=== PATIENT | male | born 1990 | race Caucasian/White ===

== ENCOUNTER 2016-09-02 14:13 | Emergency (ER) | payer BC, MEDICAID ==
[2016-09-02 14:49] LABS: % IMMATURE GRANULYOCYTES 0.2 % (0.0-1.1); ABSOLUTE IMMATURE GRANULOCYTES 0.01 10^3/uL (0.00-0.10); ADD DIFF? NO; ADD MORPH? NO; ADD SCAN? NO; ATYPICAL LYMPHOCYTE FLAG 0 (0-99); FRAGMENT RBC FLAG 0 (0-99); HEMATOCRIT 41.6 % (40.0-51.0); HEMOGLOBIN 14.5 g/dL (13.7-17.5); LEFT SHIFT FLG 0 (0-99); LIPEMIA HEMOLYSIS FLAG 90 (0-99); MEAN CELL HEMOGLOBIN 32.1 pg (27.9-34.1); MEAN CELL HEMOGLOBIN CONCENTR. 34.9 g/dL (32.4-36.7); MEAN PLATELET VOLUME 10.5 fL (8.7-11.7); PLATELET CLUMPS FLAG 0 (0-99); PLATELET COUNT 205 10^3/uL (150-400); RED BLOOD CELL COUNT 4.52 10^6/uL (4.40-6.38); RED CELL DISTRIBUTION WIDTH 12.4 % (11.5-15.2)
[2016-09-02 14:51] LABS: COLOR COLORLESS; LEUKOCYTE ESTERASE,URINE NEGATIVE (NEGATIVE); NITRITE,URINE NEGATIVE (NEGATIVE)
[2016-09-02 14:59] LABS: ALANINE AMINOTRANSFERASE 47 IU/L (21-72); ALBUMIN 4.5 g/dL (3.5-5.0); ALKALINE PHOSPHATASE 116 IU/L (38-126); ANION GAP 9 mEq/L (8-16); ASPARTATE AMINOTRANSFERASE 53 IU/L (17-59); BILIRUBIN,TOTAL 0.8 mg/dL (0.1-1.4); BILIRUBIN-CONJUGATED 0.3 mg/dL (0.0-0.5); BILIRUBIN-UNCONJUGATED 0.5 mg/dL (0.0-1.1); CALCIUM 9.5 mg/dL (8.5-10.4); CARBON DIOXIDE 22 mEq/l (22-31); CHLORIDE 105 mEq/L (97-110); GLOMERULAR FILTRATION RATE > 60; GLUCOSE 109 mg/dL (70-100); POTASSIUM 3.9 mEq/L (3.5-5.2); SODIUM 136 mEq/L (134-144); TOTAL PROTEIN 7.2 g/dL (6.3-8.2)
--- NOTE | 2016-09-02 16:40 | EDPHY ---
H & P HPI/ROS: Chief complaint: Abdominal pain History of present illness: This is a 26-year-old male who presents to the emergency department for evaluation of abdominal pain. Patient reports the onset of symptoms over the last day. Reports pain in the epigastric region in the right upper quadrant. He states it radiates towards his back. He denies precipitating factors. He denies alleviating factors. He reports associated nausea but no vomiting, no diarrhea. He further denies urinary symptoms. There has been no associated fevers. No report of chest pain, shortness of breath or cough. The patient has never had similar symptoms. Review of systems: A 10 point review of systems was obtained and other than described above was negative - Personal History Current Tetanus/Diphtheria Vaccine: Unsure Current Tetanus Diphtheria and Acellular Pertussis (TDAP): Unsure - Medical/Surgical History Hx Asthma: Yes Hx Chronic Respiratory Disease: No Hx Diabetes: No Hx Cardiac Disease: No Hx Renal Disease: No Hx Cirrhosis: No Hx Alcoholism: No Hx HIV/AIDS: No Hx Splenectomy or Spleen Trauma: No Other PMH: oral surgery, depression, - Social History Smoking Status: Never smoked - Physical Exam Exam: General Appearance: Alert, nontoxic. Eyes: Pupils equal and round no pallor or injection. ENT, Mouth: Mucous membranes moist. Respiratory: There are no retractions, lungs are clear to auscultation. Cardiovascular: Regular rate and rhythm. Gastrointestinal: Bowel sounds are normal. Abdomen is soft, nondistended. Mild tenderness in epigastric and right upper quadrant. No Ortez sign. No McBurney's point tenderness. No peritoneal signs. Neurological: Alert and oriented. Strength and sensation intact and symmetrical. Skin: Warm and dry, no rashes. Musculoskeletal: Neck is supple nontender. Extremities are symmetrical, full range of motion. Psychiatric: Patient is oriented X 3, there is no agitation. Constitutional: Initial Vital Signs Heart Rate 48 L 09/02/16 14:15 Respiratory Rate 18 09/02/16 14:15 O2 Sat (%) 95 09/02/16 14:15 O2 Delivery Mode Room Air O2 (L/minute) 36.7 Allergies/Adverse Reactions: No Known Allergies Allergy (Unverified 01/20/16 01:22) Home Medications: Medication Instructions Recorded Amoxicillin 01/20/16 Ibuprofen 01/20/16 Ondansetron Odt [Zofran Odt 4 mg 4 mg PO Q4 PRN #10 tab 01/20/16 (*)] Paxil 01/20/16 Vicodin 5-300 mg Tablet 01/20/16 Cyclobenzaprine [Flexeril 10 MG 10 mg PO TID PRN #10 tab 09/02/16 (*)] Medical Decision Making - Diagnostics Imaging Results: Imaging Impressions Abdomen Ultrasound 09/02/16 14:27 Impression: No cholelithiasis or biliary ductal dilation. Findings and recommendations discussed with Emergency Department physician, DIONISIO Mccall at 15:28 hour, 09/02/2016. Final report concurs with initial preliminary interpretation. Abdomen/Pelvis CT 09/02/16 15:45 Impression: 1. 1 mm nonobstructive calculus lower pole right kidney. No additional evidence of urinary tract calculus. 2. No significant abnormality identified within the abdomen and pelvis. The appendix could not be positively identified. Findings discussed with DIONISIO Mccall at 16:39 hour, 09/02/2016. Attention: This CT examination is specifically designed to evaluate patients who are clinically suspected of having acute obstructive uropathy. This examination does not use radiographic contrast, and as such, provides only a limited evaluation of the abdomen, pelvis and retroperitoneum. If there is further clinical suspicion for pathological conditions other than obstructive uropathy, a complete CT evaluation of the abdomen and pelvis utilizing intravenous, oral, and rectal contrast should be considered. ED Course/Re-evaluation: Patient is discussed with my secondary supervising physician Dr. Elfego Georges. Patient presents to the emergency department for evaluation of abdominal pain primarily in epigastric and right upper quadrant. On presentation he is nontoxic. Afebrile and vital signs are stable. No peritoneal signs on examination of the abdomen. Blood studies and urinalysis are unremarkable. Right upper quadrant ultrasound is unremarkable. Patient is concerned for further underlying pathology and would like to pursue a CT scan. This is performed without significant findings. During the course of his stay in the emergency department he states the pain has become more localized to the lateral aspect the abdomen. He is wondering if this is musculoskeletal in nature. He is requesting a mild muscle relaxer. I do not believe this warrants further inpatient management. Patient is discharged home. Home care is discussed. He is asked to follow up with a primary care doctor for recheck and referral information was provided. Strict return precautions were given. Patient voiced understanding and agreement with plan. Differential Diagnosis: Included but not limited to gastritis, peptic ulcer disease, gastroenteritis, biliary tract disease, pancreatitis, colitis, appendicitis, urinary tract disease, musculoskeletal pain - Data Points Laboratory Results: Laboratory Results 09/02/16 14:37 09/02/16 14:37 09/02/16 09/02/16 09/02/16 14:37 14:37 14:36 WBC 4.23 10^3/uL 10^3/uL (3.80-9.50) RBC 4.52 10^6/uL 10^6/uL (4.40-6.38) Hgb 14.5 g/dL g/dL (13.7-17.5) Hct 41.6 % % (40.0-51.0) MCV 92.0 fL fL (81.5-99.8) MCH 32.1 pg pg (27.9-34.1) MCHC 34.9 g/dL g/dL (32.4-36.7) RDW 12.4 % % (11.5-15.2) Plt Count 205 10^3/uL 10^3/uL (150-400) MPV 10.5 fL fL (8.7-11.7) Neut % (Auto) 75.7 % H % (39.3-74.2) Lymph % (Auto) 18.0 % % (15.0-45.0) Blair % (Auto) 5.4 % % (4.5-13.0) Eos % (Auto) 0.5 % L % (0.6-7.6) Baso % (Auto) 0.2 % L % (0.3-1.7) Nucleat RBC Rel Count 0.0 % % (0.0-0.2) Absolute Neuts (auto) 3.20 10^3/uL 10^3/uL (1.70-6.50) Absolute Lymphs (auto) 0.76 10^3/uL L 10^3/uL (1.00-3.00) Absolute Monos (auto) 0.23 10^3/uL L 10^3/uL (0.30-0.80) Absolute Eos (auto) 0.02 10^3/uL L 10^3/uL (0.03-0.40) Absolute Basos (auto) 0.01 10^3/uL L 10^3/uL (0.02-0.10) Absolute Nucleated RBC 0.00 10^3/uL 10^3/uL (0-0.01) Immature Gran % 0.2 % % (0.0-1.1) Immature Gran # 0.01 10^3/uL 10^3/uL (0.00-0.10) Sodium 136 mEq/L mEq/L (134-144) Potassium 3.9 mEq/L mEq/L (3.5-5.2) Chloride 105 mEq/L mEq/L (97-110) Carbon Dioxide 22 mEq/l mEq/l (22-31) Anion Gap 9 mEq/L mEq/L (8-16) BUN 25 mg/dL H mg/dL (7-23) Creatinine 1.0 mg/dL mg/dL (0.7-1.3) Estimated GFR > 60 Glucose 109 mg/dL H mg/dL (70-100) Calcium 9.5 mg/dL mg/dL (8.5-10.4) Total Bilirubin 0.8 mg/dL mg/dL (0.1-1.4) Conjugated Bilirubin 0.3 mg/dL mg/dL (0.0-0.5) Unconjugated Bilirubin 0.5 mg/dL mg/dL (0.0-1.1) AST 53 IU/L IU/L (17-59) ALT 47 IU/L IU/L (21-72) Alkaline Phosphatase 116 IU/L IU/L (38-126) Total Protein 7.2 g/dL g/dL (6.3-8.2) Albumin 4.5 g/dL g/dL (3.5-5.0) Lipase 94.0 IU/L IU/L (23-300) Urine Color COLORLESS Urine Appearance CLEAR Urine pH 5.0 (5.0-7.5) Ur Specific [place] 1.004 (1.002-1.030) Urine Protein NEGATIVE (NEGATIVE) Urine Ketones NEGATIVE (NEGATIVE) Urine Blood NEGATIVE (NEGATIVE) Urine Nitrate NEGATIVE (NEGATIVE) Urine Bilirubin NEGATIVE (NEGATIVE) Urine Urobilinogen NEGATIVE EU EU (0.2-1.0) Ur Leukocyte Esterase NEGATIVE (NEGATIVE) Urine RBC 1-3 /hpf /hpf (0-3) Urine WBC 1-3 /hpf /hpf (0-3) Ur Epithelial Cells NONE SEEN /lpf /lpf (NONE-1+) Urine Glucose NEGATIVE (NEGATIVE) Departure - Departure Disposition: Home, Routine, Self-Care Clinical Impression: Abdominal pain Condition: Good Instructions: Abdominal Pain (ED) Additional Instructions: Follow-up with a primary care doctor for recheck If symptoms worsen or new symptoms develop return to the emergency room for recheck Referrals: NONE *PRIMARY CARE P,. [Primary Care Provider] - As per Instructions [facility],. [Clinic] - As per Instructions Ivonne Montano MD [Medical Doctor] - As per Instructions Prescriptions: Cyclobenzaprine [Flexeril 10 MG (*)] 10 mg PO TID PRN #10 tab PRN Reason: Spasms
[2016-09-02 17:03] VITALS: BP 119/87; PULSE 48; RESP 18; TEMP 98.4; O2SAT 96
== END 2016-09-02 17:03 | disposition home or self-care (01) ==
DX: R10.13 Epigastric pain (principal); R10.11 Right upper quadrant pain; J45.909 Unspecified asthma, uncomplicated

== ENCOUNTER 2016-09-03 01:36 | Emergency (ER) | payer MEDICAID ==
[2016-09-03 01:41] VITALS: RESP 16; TEMP 98.1
--- NOTE | 2016-09-03 03:02 | EDPHY ---
H & P Stated Complaint: lower back pain Time Seen by Provider: 09/03/16 02:30 HPI/ROS: Chief Complaint: Right back pain HPI: 26-year-old male presenting with 2 days of right-sided abdominal and back pain. Patient was seen emergency department yesterday morning him a CT scan of the abdomen pelvis and ultrasound which were both negative. Patient states he has been increasing exerting himself recently is also jumping on a trampoline. He is given some fracture which did not help. He took some ibuprofen 15 hours ago but none since. Pain is described in his right back. There are no aggravating or alleviating factors. No numbness or weakness. No difficulty urinating or having a bowel motion. No urinary urgency or frequency. No hematuria. ROS: 10 point Review of Systems is negative except as noted in the HPI. PMH: None Medications: None Allergies: No known drug allergies Social History: No smoking, no alcohol, no recreational drug use Family History: non-contributory Physical Exam: Gen: Awake, Alert, No Distress HEENT: Nose: no rhinorrhea Eyes: PERRLA, EOMI Mouth: Moist mucosa Neck: Supple, no JVD Chest: nontender, lungs clear to auscultation Heart: S1, S2 normal, no murmur Abd: Soft, non-tender, no guarding Back: no CVA tenderness, no midline tenderness mild right-sided muscle spasm in his right lumbar region reproducing presenting complaint. Ext: no edema, non-tender Skin: no rash Neuro: CN II-XII intact, Sensation grossly intact, Strength 5/5 in bilateral upper and lower extremities - Personal History Current Tetanus/Diphtheria Vaccine: Yes - Medical/Surgical History Hx Asthma: Yes Hx Chronic Respiratory Disease: No Hx Diabetes: No Hx Cardiac Disease: No Hx Renal Disease: No Hx Cirrhosis: No Hx Alcoholism: No Hx HIV/AIDS: No Hx Splenectomy or Spleen Trauma: No Other PMH: oral surgery, depression, - Social History Smoking Status: Never smoked Constitutional: Initial Vital Signs Temperature (C) 36.7 C 09/03/16 01:39 Heart Rate 44 L 09/03/16 01:39 Respiratory Rate 16 09/03/16 01:39 Blood Pressure 140/82 H 09/03/16 01:39 O2 Sat (%) 98 09/03/16 01:39 O2 Delivery Mode Room Air Allergies/Adverse Reactions: No Known Allergies Allergy (Unverified 01/20/16 01:22) Home Medications: Medication Instructions Recorded Cyclobenzaprine [Flexeril 10 MG 10 mg PO TID PRN #10 tab 09/02/16 (*)] Medical Decision Making ED Course/Re-evaluation: Patient presenting with right-sided back pain after exerting himself in jumping on a trampoline 2 days ago. He has seen yesterday for abdominal pain had normal laboratory evaluations. Had unremarkable CT scans and ultrasounds. His abdominal exam here is completely normal. He does have reproducible right- sided back pain on examination. He has not been taking any analgesia other than Flexeril at home. Will give him some IM Toradol here and re-evaluate. Patient is improved after Toradol. I have given instructions to not remain still and resting but he needs to be remains somewhat active. He needs back exercises. He should alternate ibuprofen with acetaminophen. He should apply ice. Follow up with primary care in 3-4 days for re-evaluation. - Data Points Medications Given: Discontinued Medications Ketorolac Tromethamine (Toradol) 30 mg IM EDNOW ONE Stop: 09/03/16 03:16 Last Admin: 09/03/16 03:15 Dose: 30 mg Departure - Departure Disposition: Home, Routine, Self-Care Clinical Impression: Back pain Condition: Good Instructions: Low Back Strain (ED), Lower Back Exercises (ED) Additional Instructions: Remain active, resting all day will make your back pain worse. You may alternate ibuprofen with acetaminophen every 4 hours as needed for pain. Apply ice to the affected area for 15 minutes of every hour while awake. Perform the back exercises that have been given to you in this packet. Follow up with primary care physician in 3-4 days for further evaluation. Referrals: NONE *PRIMARY CARE P,. [Primary Care Provider] - As per Instructions Ivonne Montano MD [Medical Doctor] - As per Instructions
[2016-09-03] MEDS ORDERED: KETOROLAC 30 MG/1 ML SDV ONE (03:06)
[2016-09-03] MEDS ORDERED: KETOROLAC 30 MG/1 ML SDV IM ONE (03:15)
[2016-09-03] MEDS ORDERED: ACETAMINOPHEN 500 MG TAB ONE (04:00)
[2016-09-03] MEDS ORDERED: ACETAMINOPHEN 500 MG TAB PO ONE (04:02)
[2016-09-03 04:03] VITALS: BP 138/91; PULSE 87; O2SAT 96
== END 2016-09-03 04:03 | disposition home or self-care (01) ==
DX: M54.5 Low back pain (principal); J45.909 Unspecified asthma, uncomplicated
CPT/HCPCS: J1885